=== PATIENT | male | born 1970 | race Caucasian/White ===

== ENCOUNTER → 2017-12-24 | Outpatient (CLI) | payer OTHER ==
[~2017-12-24] MED LIST: AGM875T; CLN150C; OMEP20CA12
--- NOTE | 2017-12-24 18:10 | Diagnostic Imaging Report ---
INDICATION: Painful urination. Right flank pain. Hematuria. History of stones. FINDINGS: Supine views of the abdomen show the bowel gas pattern to be within normal limits. No mass is seen. There are calcified phleboliths in the pelvis with no calculus evident. There is no acute bony abnormality. IMPRESSION: No acute abnormality is seen. The exam is similar to a prior study from 06/04/2009. Dictated by: Dictated on workstation # [id number]
== END ==
LOC: RAD 17:48
PROVIDERS: ATTEND Nurse Practitioner Family
DX: R31.9 Hematuria, unspecified (principal); Z87.442 Personal history of urinary calculi
CPT/HCPCS: 74018